=== PATIENT | male | born 1970 | race Two or more races ===

== ENCOUNTER 2025-01-07 07:56 | Emergency (ER) | payer OTHER ==
[2025-01-07 08:12] VITALS: BP 163/98; PULSE 69; RESP 16; TEMP 98.6; BMI 22.6
[2025-01-07] MEDS ORDERED: predniSONE 20 MG TABLET (UD) ONE (08:57)
[2025-01-07] MEDS ORDERED: valACYclovir HCL 500 MG TABLET (FP) ONE (08:57)
[2025-01-07] MEDS: valACYclovir HCL 500 MG TABLET (FP) PO ONE (09:02)
[2025-01-07] MEDS: predniSONE 20 MG TABLET (UD) PO ONE (09:02)
== END 2025-01-07 09:35 | disposition home or self-care (01) ==
LOC: JER 07:56
DX: G51.0 Bell's palsy (principal)
CPT/HCPCS: 99283-25